=== PATIENT | male | born 1940 | race Caucasian/White ===

== ENCOUNTER 2018-01-30 12:17 | Outpatient (CLI) | payer OTHER, SELFPAY | END 2018-01-30 12:37 | PROVIDERS: PCP Internal Medicine; Visit Provider Surgery | DX: Z01.810 Encounter for preprocedural cardiovascular examination (principal) | CPT/HCPCS: 93005; 93010 ==

== ENCOUNTER 2018-02-05 08:00 | Day surgery (SDC) | payer OTHER, SELFPAY ==
[2018-01-30 12:47] VITALS: BP 134/76; PULSE 71; RESP 17; TEMP 36.4; O2SAT 94
[2018-02-05 08:41] VITALS: BP 157/81; PULSE 64; RESP 16; TEMP 36.6; O2SAT 96
--- NOTE | 2018-02-05 10:32 | NUR.NOTE ---
1016: Case cancelled per anesthesia. Pt. reported taking nitro on 02/01/18 because he did not feel right, states he had no real chest pain but a nagging feeling in chest that was relieved by nitro. Chico Montalvo CRNA, contacted pt's inseam trimmer in [place], [place]. EKG done in [facility] today. Per Chico Montalvo CRNA, pt. to be discharged and call Route Delivery Manager for follow up. Number provided to pt. Pt. to take nitro as needed and call 911 if nitro not effective. Nursing Note:
--- NOTE | 2018-02-05 10:41 | PDOC.ANES ---
Pt. presented for his hemorrhoid banding today. Since his preop, he states on Sunday while he was at home at rest, he had an episode of chest tickling. He denies pain but when asked if he had achy or pressure discomfort, he said yes. He denies any associated s/s including SOB, N/V or diaphoresis. Also denies any radiation. He states he took 1 SL NTG with relief of that feeling and felt better. Given his significant cardiac history, I contacted his wall covering installer at [facility] who after hearing the story wants to see patient in her office before he has this procedure. A 12 lead ECG was ordered and is unchanged from ECG on 01/30/18. He was advised to take NTG as needed for chest discomfort and call 911 if chest discomfort is not relieved. Patient states he understands and will make an appointment with his wall covering installer when he returns home. Procedure was postponed pending cardiac evaluation.
--- NOTE | 2018-02-05 10:49 | ANES_ITS ---
Pt. presented for his hemorrhoid banding today. Since his preop, he states on Sunday while he was at home at rest, he had an episode of chest tickling. He denies pain but when asked if he had achy or pressure discomfort, he said yes. He denies any associated s/s including SOB, N/V or diaphoresis. Also denies any radiation. He states he took 1 SL NTG with relief of that feeling and felt better. Given his significant cardiac history, I contacted his merchandising representative at [facility] who after hearing the story wants to see patient in her office before he has this procedure. A 12 lead ECG was ordered and is unchanged from ECG on 01/30/18. He was advised to take NTG as needed for chest discomfort and call 911 if chest discomfort is not relieved. Patient states he understands and will make an appointment with his merchandising representative when he returns home. Procedure was postponed pending cardiac evaluation.
== END 2018-02-05 10:16 ==
LOC: SUR 08:01
PROVIDERS: PCP Internal Medicine; Visit Provider Surgery
DX: K64.8 Other hemorrhoids (principal); Z53.09 Procedure and treatment not carried out because of other contraindication; R07.9 Chest pain, unspecified; Y66 Nonadministration of surgical and medical care
CPT/HCPCS: 46221; 93005; 93010

== ENCOUNTER 2018-03-01 09:07 | Day surgery (SDC) | payer OTHER, SELFPAY ==
[2018-03-01 09:48] VITALS: BP 139/73; PULSE 65; RESP 18; TEMP 36.3; O2SAT 97
--- NOTE | 2018-03-01 10:39 | W.PM.HP.N ---
Date of service: 03/01/18 Time of Service: 10:39 Assessment and Plan (1) Hemorrhoids, internal, with bleeding: Current visit: Yes Status: Acute Recommended EUA of anus and rectum with hemorrhoid bandiing with persistent bleeding on blood thinner. I reviewed the procedure with Mr. Torres, and discussed the risks of the procedure with him. All is questions were answered to his satisfaction. History of Present Illness Chief Complaint: Bleeding internal hemorrhoids Narrative: 77 y/o male here for evaluation of hemorrhoids. He recently had colonoscopy for rectal bleeding, which found pandiverticulosis and hemorrhoids. He is on eliquis for atrial fibrillation. His hemorrhoids were thought to be the cause of his recent bleeding. It was recommended that if he was to continue to be anticoagulated then he may benefit from hemorrhoid banding. Review of Systems Review of Systems All systems reviewed & are unremarkable except as noted in HPI and below Gastrointestinal Reports hematochezia PFSH Medical History Atrial fibrillation CAD (coronary artery disease) Chronic anticoagulation Diverticulosis GI bleed (10/10/10) Gout HTN (hypertension) Rectal bleeding Tubular adenoma of colon Social History Smoking/Tobacco Use Status: Former Tobacco Use Surgical History Colonoscopy - IV Sedation (08/28/11) Colonoscopy - MAC (12/18/17) Coronary Artery Bypass Gaft (CABG) Meds Home Medications Medication Instructions Recorded Confirmed Type buspirone 10 mg PO TID PRN tab-cap 12/06/17 03/01/18 History coenzyme Q10 30 mg PO DAILY 12/06/17 03/01/18 History metoprolol tartrate 25 mg PO BID tab-cap 12/06/17 03/01/18 History nitroglycerin 0.4 mg BUCCAL ONCE tab-cap 12/06/17 03/01/18 History ranitidine HCl 150 mg PO BID PRN tab-cap 12/06/17 02/27/18 History triamcinolone acetonide 15 gm TOPICAL PRN script 12/06/17 03/01/18 History apixaban [Eliquis] 5 mg PO DAILY 12/14/17 03/01/18 History calcium carbonate-mag hydroxid 1 tab PO PRN PRN 12/14/17 03/01/18 History [Rolaids] furosemide 40 mg PO DAILY 12/14/17 03/01/18 History potassium chloride 20 meq PO DAILY 12/14/17 03/01/18 History rosuvastatin [Crestor] 10 mg PO DAILY 12/14/17 03/01/18 History sotalol [Betapace] 40 mg PO BID 12/14/17 02/27/18 History Allergies Allergy/AdvReac Type Severity Reaction Status Date / Time dye Allergy Intermediate severe Uncoded 03/01/18 10:08 hives Exam Const General: cooperative and comfortable Resp Effort & Inspection: normal respiratory effort, no audible wheezes, no cough and not labored Cardio Jugular venous pressure: no JVD Rate: regular rate Rhythm: regular rhythm GI Inspection: non-distended Palpation: soft and nontender Rectal Exam: hemorrhoids Skin General skin exam: no rashes or lesions noted and turgor normal Neuro General: moves all extremities, no focal motor deficits and CN's II-XI intact bilaterally Psych Appearance: grossly normal and well kempt Affect: normal affect Judgment: judgment good
[2018-03-01] MEDS: Lactated Ringers 1,000 ML 30 ML IV (10:44)
--- NOTE | 2018-03-01 12:21 | W.PM.OP ---
Date of service: 03/01/18 Time of Service: 12:21 Operative Note DATE OF PROCEDURE: 03/01/18 PRE-OP DIAGNOSIS: Bleeding hemorrhoids POST-OP DIAGNOSIS: same PROCEDURE: 1. Examination under Anesthesia of the Anus and Rectum 2. Hemorrhoidal Banding of three internal columns SURGEON: Speedy Friedman ANESTHESIA: MAC (Chico Montalvo CRNA ASA 3. Mallampati class II) and local ESTIMATED BLOOD LOSS: 1 PATHOLOGY: none sent Patient was transported to: same day Patient's condition: stable Indications: 77 y/o male here for evaluation of hemorrhoids. He recently had colonoscopy for rectal bleeding, which found pandiverticulosis and hemorrhoids. He is on eliquis for atrial fibrillation. His hemorrhoids were thought to be the cause of his recent bleeding. It was recommended that if he was to continue to be anticoagulated then he may benefit from hemorrhoid banding. The procedure was reviewed, and the risks discussed with him. All his questions were answered to his satisfaction. Consent was obtained to proceed with EUA and hemorrhoid banding. Findings: In examining the distal rectum and anus, the patient was noted to have significant engorgement of the left lateral, right anterior, and right posterior hemorrhoidal columns. These were subsequently banded without complications Procedure Description: The patient was brought to the operating room. An appropriate timeout was performed. He was positioned prone with all bony prominences padded. Sequential compression devices were placed on bilateral lower extremities. Sedation was titrated for effect by the AGRICULTURAL EQUIPMENT MECHANIC. Once sedation was titrated for effect, the perineum was exposed with a standard gluteal tape positioning. The area was draped in a standard fashion. I then used a lighted anoscope to circumferentially examine the distal rectum and anus; in doing so, I noted that the left lateral, right anterior, and right posterior hemorrhoidal columns were significantly engorged. The columns also at the appearance of recent bleeding. I subsequently banded each of the columns in a standard fashion using a double band ligation for each column making sure to place these above the dentate line. Once once the rubber bands were in place; I could clearly see good apposition of tissue with significant reduction in the size of engorged tissue. I then injected local circumferentially around the anus. There are no complications during the case the patient tolerated procedure well.
--- NOTE | 2018-03-01 12:24 | ROE_ITS ---
Date of service: 03/01/18 Time of Service: 12:21 Operative Note DATE OF PROCEDURE: 03/01/18 PRE-OP DIAGNOSIS: Bleeding hemorrhoids POST-OP DIAGNOSIS: same PROCEDURE: 1. Examination under Anesthesia of the Anus and Rectum 2. Hemorrhoidal Banding of three internal columns SURGEON: pSeedy Friedman ANESTHESIA: MAC (Chico Montalvo CRNA ASA 3. Mallampati class II) and local ESTIMATED BLOOD LOSS: 1 PATHOLOGY: none sent Patient was transported to: same day Patient's condition: stable Indications: 77 y/o male here for evaluation of hemorrhoids. He recently had colonoscopy for rectal bleeding, which found pandiverticulosis and hemorrhoids. He is on eliquis for atrial fibrillation. His hemorrhoids were thought to be the cause of his recent bleeding. It was recommended that if he was to continue to be anticoagulated then he may benefit from hemorrhoid banding. The procedure was reviewed, and the risks discussed with him. All his questions were answered to his satisfaction. Consent was obtained to proceed with EUA and hemorrhoid banding. Findings: In examining the distal rectum and anus, the patient was noted to have significant engorgement of the left lateral, right anterior, and right posterior hemorrhoidal columns. These were subsequently banded without complications Procedure Description: The patient was brought to the operating room. An appropriate timeout was performed. He was positioned prone with all bony prominences padded. Sequential compression devices were placed on bilateral lower extremities. Sedation was titrated for effect by the CASE MANAGEMENT ASSOCIATE. Once sedation was titrated for effect, the perineum was exposed with a standard gluteal tape positioning. The area was draped in a standard fashion. I then used a lighted anoscope to circumferentially examine the distal rectum and anus ; in doing so, I noted that the left lateral, right anterior, and right posterior hemorrhoidal columns were significantly engorged. The columns also at the appearance of recent bleeding. I subsequently banded each of the columns in a standard fashion using a double band ligation for each column making sure to place these above the dentate line. Once once the rubber bands were in place; I could clearly see good apposition of tissue with significant reduction in the size of engorged tissue. I then injected local circumferentially around the anus. There are no complications during the case the patient tolerated procedure well.
--- NOTE | 2018-03-01 12:26 | W.PM.DSUDISC ---
Discharge Plan Disposition Patient Disposition: HOME Condition: Good Discharge Details Reason For Visit: Bleeding Hemorrhoids Attending Provider: Speedy Friedman Primary Care Provider: Roddy Schwartz Home Meds and New Rx's Prescriptions: Continue triamcinolone acetonide 15 GM cream 15 gm Topical PRN RF: 0 buspirone 10 MG tablet 10 mg PO TID PRNRF: 0 metoprolol tartrate 50 MG tablet 25 mg PO BID RF: 0 nitroglycerin 0.4 MG tablet, sublingual 0.4 mg Buccal ONCE RF: 0 ranitidine HCl 150 MG capsule 150 mg PO BID PRNRF: 0 coenzyme Q10 30 MG capsule 30 mg PO DAILY RF: 0 furosemide 40 MG tablet 40 mg PO DAILY RF: 0 calcium carbonate-mag hydroxid [Rolaids] 1 TAB tablet,chewable 1 tab PO PRN PRNRF: 0 sotalol [Betapace] 80 MG tablet 40 mg PO BID RF: 0 rosuvastatin [Crestor] 10 MG tablet 10 mg PO DAILY RF: 0 potassium chloride 10 MEQ tablet,ER particles/crystals 20 meq PO DAILY RF: 0 apixaban [Eliquis] 5 MG tablet 5 mg PO DAILY RF: 0 Discharge Instructions Instructions: Rubber Band Ligation (DC) Referrals: Speedy Friedman DO [ [facility] STAFF PHYSICIAN] - 03/11/18 9:30 am (Follow up after Hemorrhoid banding) Activity:: Activity as Tolerated Shower/Bathe:: 24 hours Diet:: Normal Diet Discharge Orders Discharge Orders: Discharge Order (Routine); Ordered 03/01/18 Ordered By: Speedy Friedman Discharge Data Discharge Comment: Caterina king DS: Diagnosis Discharge Diagnosis (1) Hemorrhoids, internal, with bleeding: Status: Acute
--- NOTE | 2018-03-01 12:32 | PDOC.DSDIS_ITS ---
Discharge Plan Disposition Patient Disposition: HOME Condition: Good Discharge Details Reason For Visit: Bleeding Hemorrhoids Attending Provider: Speedy Friedman Primary Care Provider: Roddy Schwartz Home Meds and New Rx's Prescriptions: Continue triamcinolone acetonide 15 GM cream 15 gm Topical PRN RF: 0 buspirone 10 MG tablet 10 mg PO TID PRNRF: 0 metoprolol tartrate 50 MG tablet 25 mg PO BID RF: 0 nitroglycerin 0.4 MG tablet, sublingual 0.4 mg Buccal ONCE RF: 0 ranitidine HCl 150 MG capsule 150 mg PO BID PRNRF: 0 coenzyme Q10 30 MG capsule 30 mg PO DAILY RF: 0 furosemide 40 MG tablet 40 mg PO DAILY RF: 0 calcium carbonate-mag hydroxid [Rolaids] 1 TAB tablet,chewable 1 tab PO PRN PRNRF: 0 sotalol [Betapace] 80 MG tablet 40 mg PO BID RF: 0 rosuvastatin [Crestor] 10 MG tablet 10 mg PO DAILY RF: 0 potassium chloride 10 MEQ tablet,ER particles/crystals 20 meq PO DAILY RF: 0 apixaban [Eliquis] 5 MG tablet 5 mg PO DAILY RF: 0 Discharge Instructions Instructions: Rubber Band Ligation (DC) Referrals: Speedy Friedman DO [ [facility] STAFF PHYSICIAN] - 03/11/18 9:30 am (Follow up after Hemorrhoid banding) Activity:: Activity as Tolerated Shower/Bathe:: 24 hours Diet:: Normal Diet Discharge Orders Discharge Orders: Discharge Order (Routine); Ordered 03/01/18 Ordered By: Speedy Friedman Discharge Data Discharge Comment: Caterina king DS: Diagnosis Discharge Diagnosis (1) Hemorrhoids, internal, with bleeding: Status: Acute
[2018-03-01 12:39] VITALS: BP 127/71; PULSE 63; RESP 14; TEMP 36.2; O2SAT 94
== END 2018-03-01 13:12 | disposition home or self-care (01) ==
PROVIDERS: PCP Internal Medicine; Visit Provider Surgery
PROC: (CPT 46221; principal; 2018-03-01 11:30)
DX: K64.4 Residual hemorrhoidal skin tags (principal); I48.91 Unspecified atrial fibrillation; Z79.01 Long term (current) use of anticoagulants
CPT/HCPCS: 46221; NC